=== PATIENT | male | born 1945 | race Caucasian/White ===

== ENCOUNTER 2018-01-05 05:56 | Inpatient (IN) ==
[~2018-01-05 05:56] MED LIST: ASPIRIN 325 MG TABLET PO ONE; DIAZEPAM 5 MG TABLET PO ONE; diphenhydrAMINE CAP 25 MG CAPSULE PO ONE
[2018-01-05] MEDS ORDERED: SODIUM CHLORIDE 0.45% 1,000 ML IV SCH (06:00)
[2018-01-05] MEDS ORDERED: ASPIRIN 325 MG TABLET ONE (06:44)
[2018-01-05] MEDS ORDERED: diphenhydrAMINE CAP 25 MG CAPSULE ONE (06:44)
[2018-01-05] MEDS ORDERED: DIAZEPAM 5 MG TABLET ONE ×2 (06:44→06:54)
[2018-01-05] MEDS ORDERED: AMIODARONE INJ 150 MG in DEXTROSE 5% 100 ML IV ONE (07:05)
[2018-01-05] MEDS ORDERED: NITROGLYCERIN DRIP 50 MG/250 ML BOTTLE IV ONE (07:16)
[2018-01-05] MEDS ORDERED: HEPARIN/NACL 0.9% 2 UNITS/ML 1,000 ML IV ONE (07:16)
[2018-01-05] MEDS ORDERED: MIDAZOLAM 2 MG/2 ML VIAL ONE ×2 (07:16→08:08)
[2018-01-05] MEDS ORDERED: fentaNYL 100 MCG/2 ML VIAL ONE (07:16)
[2018-01-05] MEDS ORDERED: VERAPAMIL 5 MG/2 ML VIAL ONE (07:17)
[2018-01-05] MEDS ORDERED: ENOXAPARIN 60 MG/0.6 ML SYRINGE ONE (07:58)
[2018-01-05] MEDS ORDERED: ACETAMINOPHEN 325 MG TABLET PO PRN (08:38)
[2018-01-05] MEDS ORDERED: ONDANSETRON 4 MG/2 ML VIAL IV PRN (08:38)
[2018-01-05] MEDS ORDERED: ZALEPLON 5 MG CAPSULE PO PRN (08:38)
[2018-01-05] MEDS ORDERED: NITROGLYCERIN SL 0.4 MG TABLET SL PRN (08:38)
[2018-01-05] MEDS ORDERED: AMIODARONE 200 MG TABLET PO SCH (09:00)
[2018-01-05] MEDS ORDERED: APIXABAN 5 MG TABLET PO SCH (09:00)
[2018-01-05] MEDS ORDERED: NON-FORMULARY MEDICATION (Omeprazole [Omeprazole] 20 MG) PO SCH (09:00)
[2018-01-05] MEDS ORDERED: DEXTROSE 50% 25 GM/50 ML VIAL IV PRN (09:28)
[2018-01-05] MEDS ORDERED: GLUCAGON 1 MG VIAL IM PRN (09:28)
[2018-01-05] MEDS ORDERED: CEFUROXIME INJ 1,500 MG in SYRINGE 1 EACH IV ONE (09:28)
[2018-01-05] MEDS ORDERED: PROPOFOL 200 MG/20 ML VIAL IV ONE (09:32)
[2018-01-05 09:58] LABS: Basophils # 0.1 10*3/uL (0.0-0.2); Basophils % 1.4 % (0.0-0.8); Eosinophils # 0.3 10*3/uL (0.0-0.87); Eosinophils % 5.1 % (0.00-10.9); Hematocrit 42.4 VOL% (42.0-52.0); Hemoglobin 13.6 GM/DL (14.0-18.0); Immature Granulocytes % 0.2 %; Immature Granulocytes Absolute 0.01 #; Lymphocytes # 1.6 10*3/uL (1.4-4.0); Lymphocytes % 31.2 % (21.2-54.2); Mean Corpuscular HGB Conc 32.1 GM/DL (32-36); Mean Corpuscular Hemoglobin 29 PG (27-34); Mean Corpuscular Volume 91.8 FL (87-102); Mean Platelet Volume 12.2 FL (9.6-12.0); Monocytes # 0.5 10*3/uL (0.11-0.8); Monocytes % 9.5 % (1.7-12.7); Neutrophils # 2.7 10*3/uL (1.4-7.4); Neutrophils % 52.6 % (38.7-73.9); Platelet Count 178 T/CUMM (130-400); Red Blood Count 4.62 MC/CUMM (3.8-5.5); Red Cell Distribution Width 13.4 % (9.3-17.3); White Blood Count 5.1 T/CUMM (4-12)
[2018-01-05] MEDS: SODIUM CHLORIDE 0.9% 1,000 ML IV SCH (09:58)
[2018-01-05] MEDS: LOSARTAN 50 MG TABLET PO SCH (10:21)
[2018-01-05] MEDS: ASPIRIN EC 81 MG TABLET PO SCH (10:22)
[2018-01-05] MEDS: ATORVASTATIN 40 MG TABLET PO SCH (10:22)
[2018-01-05] MEDS: PANTOPRAZOLE 40 MG TABLET PO SCH (10:23)
[2018-01-05 10:28] LABS: Albumin 3.9 G/DL (3.4-5.0); Bilirubin,Total 0.7 MG/DL (0.2-1.0); Calcium 9.4 MG/DL (8.5-10.1)
[2018-01-05 10:29] LABS: Osmolality,Calculated 285.3 MOS/KG (273-304); Potassium 4.1 MMOL/L (3.5-5.1)
[2018-01-05] MEDS: CHLORHEXIDINE 4% SOLN 118 ML BOTTLE TOP SCH ×2 (15:26→20:31)
[2018-01-05 17:21] LABS: ABG Base Excess 0.6 MMOL/L (-2.5-2.5); ABG HCO3 24.9 MMOL/L (20-26); ABG Oxygen Saturation 95.9 % (95-100); ABG PCO2 40.1 MM HG (35-48); ABG PH 7.408 (7.35-7.45); ABG PO2 80.6 MM HG (80-95); ABG TCO2 22.2 MMOL/L (23-27)
[2018-01-05] MEDS: CHLORHEXIDINE 0.12% ORAL RINSE 60 ML BOTTLE SWISH/SPIT SCH (20:27)
[2018-01-06 04:34] LABS: Basophils # 0.1 10*3/uL (0.0-0.2); Basophils % 1.3 % (0.0-0.8); Eosinophils # 0.4 10*3/uL (0.0-0.87); Eosinophils % 6.6 % (0.00-10.9); Hematocrit 41.2 VOL% (42.0-52.0); Hemoglobin 13.2 GM/DL (14.0-18.0); Immature Granulocytes % 0.2 %; Immature Granulocytes Absolute 0.01 #; Lymphocytes # 1.8 10*3/uL (1.4-4.0); Lymphocytes % 29.2 % (21.2-54.2); Mean Corpuscular Hemoglobin 29 PG (27-34); Mean Corpuscular Volume 90.9 FL (87-102); Mean Platelet Volume 11.5 FL (9.6-12.0); Monocytes # 0.5 10*3/uL (0.11-0.8); Monocytes % 8.4 % (1.7-12.7); Neutrophils # 3.3 10*3/uL (1.4-7.4); Neutrophils % 54.3 % (38.7-73.9); Platelet Count 138 T/CUMM (130-400); Red Blood Count 4.53 MC/CUMM (3.8-5.5); Red Cell Distribution Width 13.4 % (9.3-17.3); White Blood Count 6.1 T/CUMM (4-12)
[2018-01-06] MEDS ORDERED: PAPAVERINE 60 MG/2 ML VIAL ONE (04:39)
[2018-01-06] MEDS ORDERED: VANCOMYCIN 1,000 MG VIAL ONE (04:39)
[2018-01-06] MEDS ORDERED: CEFUROXIME INJ 1,500 MG in SYRINGE 1 EACH IV ONE (05:00)
[2018-01-06 05:03] LABS: Osmolality,Calculated 291.7 MOS/KG (273-304); Potassium 4.1 MMOL/L (3.5-5.1)
[2018-01-06] MEDS: CHLORHEXIDINE 4% SOLN 118 ML BOTTLE TOP SCH ×2 (05:05→10:57)
[2018-01-06] MEDS ORDERED: FAMOTIDINE 20 MG TABLET PO ONE ×2 (05:15→05:30)
[2018-01-06] MEDS ORDERED: LORazepam 1 MG TABLET PO ONE (05:15)
[2018-01-06] MEDS: LOSARTAN 50 MG TABLET PO SCH ×2 (05:22→11:18)
[2018-01-06] MEDS ORDERED: NITROGLYCERIN DRIP 50 MG/250 ML BOTTLE IV ONE (05:50)
[2018-01-06] MEDS ORDERED: HEPARIN/NACL 0.9% 2 UNITS/ML 500 ML IV ONE (05:50)
[2018-01-06] MEDS ORDERED: SUFentanil 250 MCG/5 ML AMP ONE ×2 (05:51)
[2018-01-06] MEDS ORDERED: MIDAZOLAM 10 MG/2 ML VIAL ONE (05:52)
[2018-01-06] MEDS ORDERED: ePHEDrine 50 MG/ML AMP ONE (05:52)
[2018-01-06] MEDS ORDERED: PHENYLEPHRINE DRIP 40 MG/250 ML PREMIX IV ONE (07:36)
[2018-01-06 07:37] LABS: ABG Base Excess 0.8 MMOL/L (-2.5-2.5); ABG HCO3 25.2 MMOL/L (20-26); ABG Oxygen Saturation 99.9 % (95-100); ABG PCO2 37.4 MM HG (35-48); ABG TCO2 21.8 MMOL/L (23-27); Glucose Heart Surgery 110 MG/DL (74-106); Hematocrit Heart Surgery 38.6 PERCENT (42-52); Hemoglobin Heart Surgery 12.5 G/DL (14.0-18.0); Ionized Calcium Arterial 1.19 MMOL/L (1.21-1.46); PCO2 Patient Temp Arterial 37.4 MMHG; Patient Temperature 37 CELCIUS; Sodium Heart/CVR 142 MMOL/L (135-145)
[2018-01-06] MEDS ORDERED: CALCIUM CHLORIDE 1,000 MG/10 ML SYRINGE IV ONE (07:56)
[2018-01-06] MEDS ORDERED: POTASSIUM CHLORIDE RIDER 0 ML IV ONE (07:56)
[2018-01-06] MEDS ORDERED: NITROPRUSSIDE 50 MG/2 ML VIAL ONE (07:56)
[2018-01-06] MEDS ORDERED: ALBUMIN 5% 12.5 GM/250 ML VIAL IV ONE (07:59)
[2018-01-06 09:06] LABS: Hematocrit Heart Surgery 29.9 PERCENT (42-52); Hemoglobin Heart Surgery 9.7 G/DL (14.0-18.0); PCO2 Patient Temp Venous 31.2 MM HG; PH Patient Temp Venous 7.524; PO2 Patient Temp Venous 42.5 MM HG; Potassium Heart/CVR 4.4 MMOL/L (3.5-5.1); VBG Base Excess 3.3 MEQ/L (0-4); VBG HCO3 27.2 MEQ/L (24-28); VBG Oxygen Saturation 87.1 %; VBG PCO2 34.4 MMHG (41-51); VBG PH 7.494; VBG PO2 48.8 MMHG (17-40)
[2018-01-06 09:35] LABS: PCO2 Patient Temp Venous 31.8 MM HG; PH Patient Temp Venous 7.519; PO2 Patient Temp Venous 41.3 MM HG; Potassium Heart/CVR 4.6 MMOL/L (3.5-5.1); VBG Base Excess 3.3 MEQ/L (0-4); VBG HCO3 27.1 MEQ/L (24-28); VBG Oxygen Saturation 83.5 %; VBG PCO2 33.4 MMHG (41-51); VBG PH 7.503; VBG PO2 44.3 MMHG (17-40)
[2018-01-06 09:58] LABS: ABG Base Excess 2.5 MMOL/L (-2.5-2.5); ABG HCO3 26.6 MMOL/L (20-26); ABG PCO2 30.6 MM HG (35-48); ABG PH 7.517 (7.35-7.45); ABG TCO2 22.1 MMOL/L (23-27); Glucose Heart Surgery 221 MG/DL (74-106); Hematocrit Heart Surgery 33.5 PERCENT (42-52); Hemoglobin Heart Surgery 10.9 G/DL (14.0-18.0); Ionized Calcium Arterial 1.26 MMOL/L (1.21-1.46); PCO2 Patient Temp Arterial 30.6 MMHG; PH Patient Temp Arterial 7.517; Patient Temperature 37 CELCIUS; Potassium Heart/CVR 4.1 MMOL/L (3.5-5.1); Sodium Heart/CVR 136 MMOL/L (135-145)
[2018-01-06] MEDS ORDERED: DEXTROSE 5% KCL 20 MEQ 20 MEQ/1,000 ML BAG IV ONE (10:02)
[2018-01-06] MEDS ORDERED: HEPARIN 10,000 UNIT/10 ML VIAL ONE (10:03)
[2018-01-06] MEDS ORDERED: PROTAMINE SULFATE 50 MG/5 ML VIAL IV ONE ×3 (10:03→14:56)
[2018-01-06] MEDS ORDERED: methylPREDNISolone SOD SUC 1,000 MG/8 ML VIAL ONE (10:03)
[2018-01-06] MEDS ORDERED: SODIUM BICARBONATE 50 MEQ/50 ML SYRINGE IV ONE (10:03)
[2018-01-06] MEDS ORDERED: FUROSEMIDE 20 MG/2 ML VIAL ONE (10:03)
[2018-01-06] MEDS ORDERED: ALBUMIN 25% 25 GM/100 ML VIAL IV ONE (10:03)
[2018-01-06] MEDS ORDERED: MAGNESIUM SULFATE 1 GM/2 ML VIAL ONE (10:03)
[2018-01-06] MEDS ORDERED: MANNITOL 12.5 GM/50 ML VIAL IV ONE (10:03)
[2018-01-06] MEDS ORDERED: PROTAMINE SULFATE 250 MG/25 ML VIAL IV ONE (10:03)
[2018-01-06] MEDS ORDERED: AMIODARONE INJ 450 MG in DEXTROSE 5% 241 ML IV ONE (10:30)
[2018-01-06] MEDS ORDERED: LACTATED RINGERS 250 ML IV PRN (10:39)
[2018-01-06] MEDS ORDERED: NITROPRUSSIDE 100 MG in DEXTROSE 5% 250 ML IV PRN (10:39)
[2018-01-06] MEDS ORDERED: DEXTROSE 50% 25 GM/50 ML VIAL IV PRN ×2 (10:39)
[2018-01-06] MEDS ORDERED: MORPHINE 10 MG/1 ML VIAL IV PRN (10:39)
[2018-01-06] MEDS ORDERED: CALCIUM CHLORIDE 1,000 MG/10 ML SYRINGE IV PRN (10:39)
[2018-01-06] MEDS ORDERED: ONDANSETRON 4 MG/2 ML VIAL IV PRN (10:39)
[2018-01-06] MEDS ORDERED: INSULIN REGULAR 100 UNIT/ML IV ONE (10:39)
[2018-01-06] MEDS ORDERED: MAGNESIUM SULF RIDER 2 GM in PREMIX 1 EACH IV PRN (10:39)
[2018-01-06] MEDS ORDERED: MIDAZOLAM 10 MG/2 ML VIAL IV PRN (10:39)
[2018-01-06] MEDS ORDERED: MIDAZOLAM 2 MG/2 ML VIAL IV PRN (10:39)
[2018-01-06] MEDS ORDERED: MAGNESIUM SULF RIDER 4 GM in PREMIX 1 EACH IV PRN (10:39)
[2018-01-06] MEDS ORDERED: PHENYLEPHRINE DRIP 40 MG/250 ML PREMIX IV PRN (10:39)
[2018-01-06] MEDS ORDERED: POTASSIUM CHLORIDE RIDER 10 MEQ in PREMIX 1 EACH IV PRN (10:39)
[2018-01-06] MEDS ORDERED: MORPHINE 4 MG/1 ML VIAL IV PRN (10:39)
[2018-01-06] MEDS ORDERED: VECURONIUM 10 MG VIAL IV PRN ×2 (10:39)
[2018-01-06] MEDS ORDERED: ACETAMINOPHEN 650 MG SUPP RECTAL PRN (10:39)
[2018-01-06] MEDS ORDERED: INSULIN REGULAR 100 UNIT/ML IV PRN (10:39)
[2018-01-06] MEDS ORDERED: SEVOFLURANE 1 UNIT/15 MINUTE INH ONE (10:48)
[2018-01-06] MEDS ORDERED: ETOMIDATE 40 MG/20 ML VIAL IV ONE (10:49)
[2018-01-06] MEDS ORDERED: CALCIUM CHLORIDE 1,000 MG/10 ML VIAL IV ONE (10:50)
[2018-01-06] MEDS ORDERED: SODIUM CHLORIDE 0.9% 500 ML IV ONE (10:51)
[2018-01-06] MEDS ORDERED: LACTATED RINGERS 1,000 ML IV ONE (10:51)
[2018-01-06] MEDS ORDERED: AMIODARONE 150 MG/3 ML VIAL ONE (10:51)
[2018-01-06] MEDS ORDERED: PHENYLEPHRINE 10 MG/1 ML VIAL IV ONE (10:51)
[2018-01-06] MEDS ORDERED: ROCURONIUM 100 MG/10 ML VIAL IV ONE (10:51)
[2018-01-06] MEDS ORDERED: SODIUM CHLORIDE 0.9% 1,000 ML IV ONE (10:51)
[2018-01-06] MEDS ORDERED: MINERAL OIL/PETROLATUM OPH OINT 3.5 GM TUBE ONE (10:51)
[2018-01-06] MEDS ORDERED: SODIUM CHLORIDE 0.9% 100 ML IV ONE (10:52)
[2018-01-06 11:15] LABS: ABG Base Excess 1.5 MMOL/L (-2.5-2.5); ABG HCO3 25.8 MMOL/L (20-26); ABG Oxygen Saturation 98.9 % (95-100); ABG PCO2 34.2 MM HG (35-48); ABG PH 7.469 (7.35-7.45); ABG TCO2 22.1 MMOL/L (23-27); Glucose Heart Surgery 161 MG/DL (74-106); Hematocrit Heart Surgery 34.3 PERCENT (42-52); Hemoglobin Heart Surgery 11.1 G/DL (14.0-18.0); Potassium Heart/CVR 3.6 MMOL/L (3.5-5.1)
[2018-01-06 11:16] LABS: Basophils # 0.1 10*3/uL (0.0-0.2); Basophils % 0.7 % (0.0-0.8); Eosinophils # 0.1 10*3/uL (0.0-0.87); Eosinophils % 1.7 % (0.00-10.9); Hematocrit 33.9 VOL% (42.0-52.0); Hemoglobin 11.2 GM/DL (14.0-18.0); Immature Granulocytes % 0.6 %; Immature Granulocytes Absolute 0.05 #; Lymphocytes # 0.9 10*3/uL (1.4-4.0); Lymphocytes % 11.2 % (21.2-54.2); Mean Corpuscular Hemoglobin 30 PG (27-34); Mean Corpuscular Volume 90.2 FL (87-102); Mean Platelet Volume 11.2 FL (9.6-12.0); Monocytes # 0.4 10*3/uL (0.11-0.8); Monocytes % 5.5 % (1.7-12.7); Neutrophils # 6.5 10*3/uL (1.4-7.4); Neutrophils % 80.3 % (38.7-73.9); Platelet Count 149 T/CUMM (130-400); Red Blood Count 3.76 MC/CUMM (3.8-5.5); Red Cell Distribution Width 13.2 % (9.3-17.3); White Blood Count 8.1 T/CUMM (4-12)
[2018-01-06] MEDS: ATORVASTATIN 40 MG TABLET PO SCH (11:18)
[2018-01-06] MEDS: ASPIRIN EC 81 MG TABLET PO SCH (11:18)
[2018-01-06] MEDS: SODIUM CHLORIDE 0.9% 1,000 ML IV SCH (11:19)
[2018-01-06] MEDS: PANTOPRAZOLE 40 MG TABLET PO SCH (11:19)
[2018-01-06] MEDS: CHLORHEXIDINE 0.12% ORAL RINSE 60 ML BOTTLE SWISH/SPIT SCH ×2 (11:19→21:08)
[2018-01-06 11:26] LABS: INR 1.2; PT Patient Result 12.3 SECS; Partial Thromboplastin Time 30.2 SECS (0-40)
[2018-01-06] MEDS: POTASSIUM CHLORIDE RIDER 20 MEQ in PREMIX 1 EACH IV PRN ×3 (11:28→21:30)
[2018-01-06] MEDS: SODIUM CHLORIDE 0.45% 1,000 ML IV SCH ×2 (11:29)
[2018-01-06 11:46] LABS: Albumin 3.4 G/DL (3.4-5.0); Bilirubin,Total 1.4 MG/DL (0.2-1.0); Osmolality,Calculated 289.1 MOS/KG (273-304); Potassium 3.9 MMOL/L (3.5-5.1); Total Protein 5.4 G/DL (6.4-8.3)
[2018-01-06] MEDS: AMIODARONE INJ 450 MG in DEXTROSE 5% 241 ML IV SCH (11:47)
[2018-01-06] MEDS: KETOROLAC 30 MG/1 ML VIAL IV SCH ×3 (11:53→23:16)
[2018-01-06 11:54] LABS: CKMB % 6.2 %
[2018-01-06] MEDS: LACTATED RINGERS 1,000 ML IV PRN ×2 (11:54→13:00)
[2018-01-06 11:56] LABS: Troponin I Only 0.961 NG/ML (0.00-0.045)
[2018-01-06 12:17] LABS: ABG Base Excess 2.3 MMOL/L (-2.5-2.5); ABG HCO3 26.5 MMOL/L (20-26); ABG Oxygen Saturation 98.8 % (95-100); ABG PCO2 35.5 MM HG (35-48); ABG PH 7.469 (7.35-7.45); ABG TCO2 22.8 MMOL/L (23-27); Glucose Heart Surgery 139 MG/DL (74-106); Hematocrit Heart Surgery 35.4 PERCENT (42-52); Hemoglobin Heart Surgery 11.5 G/DL (14.0-18.0); Potassium Heart/CVR 3.6 MMOL/L (3.5-5.1)
[2018-01-06] MEDS: ALBUMIN 5% 12.5 GM in PREMIX 1 EACH IV PRN ×5 (14:05→20:27)
[2018-01-06 14:22] LABS: ABG Base Excess 2.4 MMOL/L (-2.5-2.5); ABG HCO3 26.6 MMOL/L (20-26); ABG Oxygen Saturation 98.5 % (95-100); ABG PCO2 34.4 MM HG (35-48); ABG PH 7.479 (7.35-7.45); ABG TCO2 22.8 MMOL/L (23-27); Glucose Heart Surgery 145 MG/DL (74-106); Hematocrit Heart Surgery 34.5 PERCENT (42-52); Hemoglobin Heart Surgery 11.2 G/DL (14.0-18.0); Potassium Heart/CVR 3.7 MMOL/L (3.5-5.1)
[2018-01-06] MEDS ORDERED: MIDAZOLAM 2 MG/2 ML VIAL IV ONE (14:45)
[2018-01-06] MEDS: INSULIN REGULAR DRIP 100 ML IV SCH ×2 (15:08→23:58)
[2018-01-06 16:42] LABS: ABG Oxygen Saturation 98.5 % (95-100); ABG PCO2 35.9 MM HG (35-48); Glucose Heart Surgery 162 MG/DL (74-106); Hematocrit Heart Surgery 28.8 PERCENT (42-52); Hemoglobin Heart Surgery 9.3 G/DL (14.0-18.0); Potassium Heart/CVR 3.8 MMOL/L (3.5-5.1)
[2018-01-06] MEDS: CEFUROXIME INJ 1,500 MG in SYRINGE 1 EACH IV SCH (18:38)
[2018-01-06] MEDS ORDERED: PROPOFOL 1,000 MG/100 ML BOTTLE IV ONE (19:32)
[2018-01-06] MEDS ORDERED: FUROSEMIDE 40 MG/4 ML VIAL IV ONE ×2 (19:42→19:43)
[2018-01-06] MEDS ORDERED: FUROSEMIDE 40 MG/4 ML VIAL IV PRN (19:44)
[2018-01-06 19:59] LABS: ABG Base Excess -0.3 MMOL/L (-2.5-2.5); ABG HCO3 24.2 MMOL/L (20-26); ABG PCO2 42.8 MM HG (35-48); ABG PH 7.375 (7.35-7.45); ABG TCO2 22.7 MMOL/L (23-27); Glucose Heart Surgery 152 MG/DL (74-106); Hematocrit Heart Surgery 32.4 PERCENT (42-52); Hemoglobin Heart Surgery 10.5 G/DL (14.0-18.0); Potassium Heart/CVR 4.1 MMOL/L (3.5-5.1)
[2018-01-06] MEDS: PROPOFOL 1,000 MG/100 ML BOTTLE IV SCH (20:03)
[2018-01-06 21:42] LABS: CKMB % 2.5 %
[2018-01-06 21:44] LABS: Troponin I Only 1.54 NG/ML (0.00-0.045)
[2018-01-06 23:43] LABS: ABG Base Excess 1.3 MMOL/L (-2.5-2.5); ABG HCO3 25.5 MMOL/L (20-26); ABG PCO2 36.8 MM HG (35-48); ABG PH 7.444 (7.35-7.45); ABG PO2 77.9 MM HG (80-95); ABG TCO2 22.9 MMOL/L (23-27); Glucose Heart Surgery 154 MG/DL (74-106); Hematocrit Heart Surgery 30.4 PERCENT (42-52); Hemoglobin Heart Surgery 9.8 G/DL (14.0-18.0); Potassium Heart/CVR 4.2 MMOL/L (3.5-5.1)
[2018-01-07] MEDS: AMIODARONE INJ 450 MG in DEXTROSE 5% 241 ML IV SCH (02:13)
[2018-01-07] MEDS: PROPOFOL 1,000 MG/100 ML BOTTLE IV SCH (02:14)
[2018-01-07 03:47] LABS: ABG Base Excess 0.9 MMOL/L (-2.5-2.5); ABG HCO3 25.3 MMOL/L (20-26); ABG Oxygen Saturation 98.6 % (95-100); ABG PCO2 37.6 MM HG (35-48); ABG PH 7.432 (7.35-7.45); ABG TCO2 22.8 MMOL/L (23-27); Glucose Heart Surgery 107 MG/DL (74-106); Hematocrit Heart Surgery 30.2 PERCENT (42-52); Hemoglobin Heart Surgery 9.8 G/DL (14.0-18.0); Potassium Heart/CVR 3.9 MMOL/L (3.5-5.1)
[2018-01-07 03:53] LABS: Basophils % 0.1 % (0.0-0.8); Hemoglobin 9.6 GM/DL (14.0-18.0); Immature Granulocytes % 0.3 %; Immature Granulocytes Absolute 0.04 #; Lymphocytes % 8.7 % (21.2-54.2); Mean Corpuscular HGB Conc 33.1 GM/DL (32-36); Mean Corpuscular Hemoglobin 30 PG (27-34); Mean Corpuscular Volume 90.9 FL (87-102); Mean Platelet Volume 11.3 FL (9.6-12.0); Monocytes # 0.4 10*3/uL (0.11-0.8); Monocytes % 3.3 % (1.7-12.7); Neutrophils # 10.3 10*3/uL (1.4-7.4); Neutrophils % 87.6 % (38.7-73.9); Platelet Count 124 T/CUMM (130-400); Red Blood Count 3.19 MC/CUMM (3.8-5.5); Red Cell Distribution Width 13.7 % (9.3-17.3); White Blood Count 11.8 T/CUMM (4-12)
[2018-01-07 04:35] LABS: Albumin 3.7 G/DL (3.4-5.0); Bilirubin,Direct 0.3 MG/DL (0.0-0.20); Calcium 8.2 MG/DL (8.5-10.1); Total Protein 5.5 G/DL (6.4-8.3)
[2018-01-07 04:36] LABS: CKMB % 1.8 %; Osmolality,Calculated 295.6 MOS/KG (273-304)
[2018-01-07] MEDS: POTASSIUM CHLORIDE RIDER 20 MEQ in PREMIX 1 EACH IV PRN (04:43)
[2018-01-07] MEDS: KETOROLAC 30 MG/1 ML VIAL IV SCH (04:43)
[2018-01-07 04:44] LABS: Troponin I Only 1.5 NG/ML (0.00-0.045)
[2018-01-07 05:52] LABS: Lymphocytes 6 % (20-55); Platelet Estimate Normal; Segmented Neutrophils 92 % (50-85); Total Cells Counted 100
[2018-01-07] MEDS: CEFUROXIME INJ 1,500 MG in SYRINGE 1 EACH IV SCH (07:08)
[2018-01-07 07:12] LABS: ABG HCO3 24.4 MMOL/L (20-26); ABG Oxygen Saturation 99.1 % (95-100); ABG PH 7.422 (7.35-7.45); ABG TCO2 21.8 MMOL/L (23-27); Glucose Heart Surgery 111 MG/DL (74-106); Hematocrit Heart Surgery 31.5 PERCENT (42-52); Hemoglobin Heart Surgery 10.2 G/DL (14.0-18.0); Potassium Heart/CVR 4.2 MMOL/L (3.5-5.1)
[2018-01-07 09:01] LABS: ABG Base Excess -0.6 MMOL/L (-2.5-2.5); ABG HCO3 23.9 MMOL/L (20-26); ABG Oxygen Saturation 98.5 % (95-100); ABG PCO2 42.4 MM HG (35-48); ABG PH 7.373 (7.35-7.45); ABG TCO2 22.3 MMOL/L (23-27); Glucose Heart Surgery 115 MG/DL (74-106); Hematocrit Heart Surgery 33.1 PERCENT (42-52); Hemoglobin Heart Surgery 10.7 G/DL (14.0-18.0); Potassium Heart/CVR 4.3 MMOL/L (3.5-5.1)
[2018-01-07] MEDS: CHLORHEXIDINE 0.12% ORAL RINSE 60 ML BOTTLE SWISH/SPIT SCH ×2 (09:10→21:13)
[2018-01-07 09:45] LABS: ABG Base Excess -1.2 MMOL/L (-2.5-2.5); ABG HCO3 23.4 MMOL/L (20-26); ABG Oxygen Saturation 97.5 % (95-100); ABG PH 7.341 (7.35-7.45); ABG TCO2 22.5 MMOL/L (23-27); Glucose Heart Surgery 123 MG/DL (74-106); Hemoglobin Heart Surgery 10.7 G/DL (14.0-18.0); Potassium Heart/CVR 4.2 MMOL/L (3.5-5.1)
[2018-01-07] MEDS: SODIUM CHLORIDE 0.45% 1,000 ML IV SCH ×2 (11:15→11:28)
[2018-01-07] MEDS: AMIODARONE 200 MG TABLET PO SCH (11:17)
[2018-01-07] MEDS: INSULIN REGULAR DRIP 100 ML IV SCH (11:27)
[2018-01-07] MEDS ORDERED: SODIUM CHLOR 0.45% KCL 20 MEQ 20 MEQ/1,000 ML BAG IV SCH (12:29)
[2018-01-07] MEDS ORDERED: ALUMINUM/MAGNES/SIMETH MAX STR 30 ML UDCUP PO PRN (12:29)
[2018-01-07] MEDS ORDERED: GLUCAGON 1 MG VIAL IM PRN ×2 (12:29)
[2018-01-07] MEDS ORDERED: MORPHINE 4 MG/1 ML VIAL IV PRN (12:29)
[2018-01-07] MEDS ORDERED: MAGNESIUM SULF RIDER 2 GM in PREMIX 1 EACH IV PRN (12:29)
[2018-01-07] MEDS ORDERED: oxyCODONE/ACETAMINOPHEN 5-325 MG TABLET PO PRN (12:29)
[2018-01-07] MEDS ORDERED: ONDANSETRON 4 MG/2 ML VIAL IV PRN (12:29)
[2018-01-07] MEDS ORDERED: MAGNESIUM HYDROXIDE SUSP 30 ML UDCUP PO PRN (12:29)
[2018-01-07] MEDS ORDERED: ACETAMINOPHEN 325 MG TABLET PO PRN (12:29)
[2018-01-07] MEDS ORDERED: ZALEPLON 5 MG CAPSULE PO PRN (12:29)
[2018-01-07] MEDS ORDERED: POTASSIUM CHLORIDE 20 MEQ TABLET PO PRN (12:29)
[2018-01-07] MEDS ORDERED: KETOROLAC 15 MG/1 ML VIAL IV PRN (12:29)
[2018-01-07] MEDS ORDERED: DEXTROSE 50% 25 GM/50 ML VIAL IV PRN ×2 (12:29)
[2018-01-07] MEDS ORDERED: MAGNESIUM SULF RIDER 4 GM in PREMIX 1 EACH IV PRN (12:29)
[2018-01-08 05:10] LABS: Basophils % 0.1 % (0.0-0.8); Hematocrit 32.3 VOL% (42.0-52.0); Hemoglobin 10.9 GM/DL (14.0-18.0); Immature Granulocytes % 0.7 %; Lymphocytes # 1.2 10*3/uL (1.4-4.0); Lymphocytes % 8.3 % (21.2-54.2); Mean Corpuscular HGB Conc 33.7 GM/DL (32-36); Mean Corpuscular Hemoglobin 30 PG (27-34); Mean Corpuscular Volume 89.7 FL (87-102); Mean Platelet Volume 12.3 FL (9.6-12.0); Monocytes # 1.1 10*3/uL (0.11-0.8); Monocytes % 7.4 % (1.7-12.7); Neutrophils # 11.8 10*3/uL (1.4-7.4); Neutrophils % 83.5 % (38.7-73.9); Platelet Count 125 T/CUMM (130-400); Red Cell Distribution Width 14.3 % (9.3-17.3); White Blood Count 14.1 T/CUMM (4-12)
[2018-01-08 05:35] LABS: Albumin 3.7 G/DL (3.4-5.0); Bilirubin,Direct 0.26 MG/DL (0.0-0.20); Bilirubin,Indirect 0.7 MG/DL (0.0-1.0); CKMB % 1.4 %; Calcium 8.4 MG/DL (8.5-10.1); Osmolality,Calculated 294.1 MOS/KG (273-304); Potassium 4.6 MMOL/L (3.5-5.1)
[2018-01-08 05:43] LABS: Band Neutrophils 8 % (0-10); Lymphocytes 11 % (20-55); Segmented Neutrophils 80 % (50-85); Total Cells Counted 100
[2018-01-08 05:44] LABS: Platelet Estimate Normal
[2018-01-08 05:47] LABS: Troponin I Only 0.747 NG/ML (0.00-0.045)
[2018-01-08] MEDS ORDERED: FUROSEMIDE 40 MG/4 ML VIAL IV ONE (06:00)
[2018-01-08] MEDS: LOSARTAN 50 MG TABLET PO SCH (08:26)
[2018-01-08] MEDS: ATORVASTATIN 40 MG TABLET PO SCH (08:26)
[2018-01-08] MEDS: AMIODARONE 200 MG TABLET PO SCH (08:26)
[2018-01-08] MEDS: FERROUS SULFATE 325 MG TABLET PO SCH (08:26)
[2018-01-08] MEDS: PANTOPRAZOLE 40 MG TABLET PO SCH (08:26)
[2018-01-08] MEDS: ASPIRIN EC 81 MG TABLET PO SCH (08:27)
[2018-01-08] MEDS: DOCUSATE SODIUM 100 MG CAPSULE PO SCH (08:27)
[2018-01-08] MEDS: CHLORHEXIDINE 0.12% ORAL RINSE 60 ML BOTTLE SWISH/SPIT SCH ×2 (09:37→20:12)
[2018-01-09 04:40] LABS: Basophils % 0.1 % (0.0-0.8); Hematocrit 33.3 VOL% (42.0-52.0); Hemoglobin 11.2 GM/DL (14.0-18.0); Immature Granulocytes % 0.7 %; Immature Granulocytes Absolute 0.09 #; Lymphocytes # 1.1 10*3/uL (1.4-4.0); Lymphocytes % 9.2 % (21.2-54.2); Mean Corpuscular HGB Conc 33.6 GM/DL (32-36); Mean Corpuscular Hemoglobin 30 PG (27-34); Mean Corpuscular Volume 90.2 FL (87-102); Mean Platelet Volume 12.3 FL (9.6-12.0); Monocytes # 0.9 10*3/uL (0.11-0.8); Neutrophils # 10.1 10*3/uL (1.4-7.4); Platelet Count 119 T/CUMM (130-400); Red Blood Count 3.69 MC/CUMM (3.8-5.5); Red Cell Distribution Width 14.1 % (9.3-17.3); White Blood Count 12.2 T/CUMM (4-12)
[2018-01-09 05:03] LABS: Alanine Aminotransferase 27 U/L (16-61); Albumin 3.6 G/DL (3.4-5.0); Alkaline Phosphatase 57 U/L (45-117); Aspartate Amino Transferase 24 U/L (0-37); Blood Urea Nitrogen 32 MG/DL (7-18); Calcium 8.7 MG/DL (8.5-10.1); Glucose 122 MG/DL (74-106); Osmolality,Calculated 286.4 MOS/KG (273-304); Potassium 4.5 MMOL/L (3.5-5.1); Sodium 140 MMOL/L (136-145)
[2018-01-09 05:04] LABS: Troponin I Only 0.321 NG/ML (0.00-0.045)
[2018-01-09] MEDS ORDERED: FUROSEMIDE 40 MG/4 ML VIAL IV ONE (06:00)
[2018-01-09] MEDS: APIXABAN 5 MG TABLET PO SCH ×2 (10:11→21:37)
[2018-01-09] MEDS: AMIODARONE 200 MG TABLET PO SCH (10:12)
[2018-01-09] MEDS: LOSARTAN 50 MG TABLET PO SCH (10:12)
[2018-01-09] MEDS: PANTOPRAZOLE 40 MG TABLET PO SCH (10:13)
[2018-01-09] MEDS: DOCUSATE SODIUM 100 MG CAPSULE PO SCH (10:13)
[2018-01-09] MEDS: ASPIRIN EC 81 MG TABLET PO SCH (10:13)
[2018-01-09] MEDS: ATORVASTATIN 40 MG TABLET PO SCH (10:13)
[2018-01-09] MEDS: FERROUS SULFATE 325 MG TABLET PO SCH (10:14)
[2018-01-09] MEDS: CHLORHEXIDINE 0.12% ORAL RINSE 60 ML BOTTLE SWISH/SPIT SCH ×2 (10:14→21:38)
[2018-01-09] MEDS ORDERED: NITROGLYCERIN SL 0.4 MG TABLET SL PRN (10:19)
[2018-01-09] MEDS ORDERED: METOPROLOL TARTRATE 25 MG TABLET PO SCH (10:30)
[2018-01-09] MEDS: METOPROLOL TARTRATE 25 MG TABLET PO SCH ×2 (21:33→21:38)
[2018-01-10 04:16] LABS: Basophils % 0.1 % (0.0-0.8); Eosinophils # 0.1 10*3/uL (0.0-0.87); Eosinophils % 0.6 % (0.00-10.9); Hematocrit 35.1 VOL% (42.0-52.0); Hemoglobin 11.4 GM/DL (14.0-18.0); Immature Granulocytes % 0.5 %; Immature Granulocytes Absolute 0.06 #; Lymphocytes # 1.8 10*3/uL (1.4-4.0); Lymphocytes % 16.1 % (21.2-54.2); Mean Corpuscular HGB Conc 32.5 GM/DL (32-36); Mean Corpuscular Hemoglobin 30 PG (27-34); Mean Corpuscular Volume 91.2 FL (87-102); Mean Platelet Volume 11.7 FL (9.6-12.0); Monocytes % 8.9 % (1.7-12.7); Neutrophils # 8.4 10*3/uL (1.4-7.4); Neutrophils % 73.8 % (38.7-73.9); Platelet Count 139 T/CUMM (130-400); Red Blood Count 3.85 MC/CUMM (3.8-5.5); Red Cell Distribution Width 13.8 % (9.3-17.3); White Blood Count 11.4 T/CUMM (4-12)
[2018-01-10 04:39] LABS: Calcium 8.9 MG/DL (8.5-10.1); Osmolality,Calculated 288.4 MOS/KG (273-304); Potassium 4.3 MMOL/L (3.5-5.1)
[2018-01-10] MEDS: AMIODARONE 200 MG TABLET PO SCH (09:42)
[2018-01-10] MEDS: ASPIRIN EC 81 MG TABLET PO SCH (09:42)
[2018-01-10] MEDS: PANTOPRAZOLE 40 MG TABLET PO SCH (09:42)
[2018-01-10] MEDS: DOCUSATE SODIUM 100 MG CAPSULE PO SCH (09:43)
[2018-01-10] MEDS: LOSARTAN 50 MG TABLET PO SCH (09:43)
[2018-01-10] MEDS: APIXABAN 5 MG TABLET PO SCH ×2 (09:43→21:01)
[2018-01-10] MEDS: METOPROLOL TARTRATE 25 MG TABLET PO SCH ×2 (09:44→21:01)
[2018-01-10] MEDS: ATORVASTATIN 40 MG TABLET PO SCH (09:44)
[2018-01-10] MEDS: CHLORHEXIDINE 0.12% ORAL RINSE 60 ML BOTTLE SWISH/SPIT SCH ×2 (09:44→21:02)
[2018-01-10] MEDS: FERROUS SULFATE 325 MG TABLET PO SCH (09:44)
[2018-01-11 04:54] LABS: Basophils % 0.3 % (0.0-0.8); Eosinophils # 0.4 10*3/uL (0.0-0.87); Eosinophils % 4.3 % (0.00-10.9); Hematocrit 33.5 VOL% (42.0-52.0); Hemoglobin 11.3 GM/DL (14.0-18.0); Immature Granulocytes % 0.7 %; Immature Granulocytes Absolute 0.07 #; Lymphocytes # 2.3 10*3/uL (1.4-4.0); Lymphocytes % 22.6 % (21.2-54.2); Mean Corpuscular HGB Conc 33.7 GM/DL (32-36); Mean Corpuscular Hemoglobin 30 PG (27-34); Mean Corpuscular Volume 88.9 FL (87-102); Monocytes % 9.6 % (1.7-12.7); Neutrophils # 6.2 10*3/uL (1.4-7.4); Neutrophils % 62.5 % (38.7-73.9); Platelet Count 154 T/CUMM (130-400); Red Blood Count 3.77 MC/CUMM (3.8-5.5); Red Cell Distribution Width 13.5 % (9.3-17.3)
[2018-01-11 05:12] LABS: Alanine Aminotransferase 42 U/L (16-61); Albumin 3.3 G/DL (3.4-5.0); Alkaline Phosphatase 74 U/L (45-117); Aspartate Amino Transferase 27 U/L (0-37); Blood Urea Nitrogen 34 MG/DL (7-18); Calcium 8.7 MG/DL (8.5-10.1); Glucose 105 MG/DL (74-106); Osmolality,Calculated 286.4 MOS/KG (273-304); Potassium 4.1 MMOL/L (3.5-5.1); Sodium 140 MMOL/L (136-145); Total Protein 5.8 G/DL (6.4-8.3)
[2018-01-11 05:15] LABS: Troponin I Only 0.145 NG/ML (0.00-0.045)
[2018-01-11 07:37] VITALS: BP 121/70
[2018-01-11] MEDS: APIXABAN 5 MG TABLET PO SCH (09:38)
[2018-01-11] MEDS: DOCUSATE SODIUM 100 MG CAPSULE PO SCH (09:38)
[2018-01-11] MEDS: LOSARTAN 50 MG TABLET PO SCH (09:38)
[2018-01-11] MEDS: METOPROLOL TARTRATE 25 MG TABLET PO SCH (09:38)
[2018-01-11] MEDS: ATORVASTATIN 40 MG TABLET PO SCH (09:38)
[2018-01-11] MEDS: AMIODARONE 200 MG TABLET PO SCH (09:39)
[2018-01-11] MEDS: ASPIRIN EC 81 MG TABLET PO SCH (09:39)
[2018-01-11] MEDS: PANTOPRAZOLE 40 MG TABLET PO SCH (09:39)
[2018-01-11] MEDS: FERROUS SULFATE 325 MG TABLET PO SCH (09:40)
== END 2018-01-11 10:50 | disposition home health service (06) | DRG 234 ==
LOC: N.CL 05:56 → N.TELEN 09:30 → N.CVR 01-06 08:55 → N.TELES 01-07 14:04
PROVIDERS: ADMIT Internal Medicine Cardiovascular Disease; ATTEND Internal Medicine Cardiovascular Disease